=== PATIENT | female | born 1970 | race American Indian/Alaskan Native ===

== ENCOUNTER 2020-12-02 13:40 | Emergency (ER) | payer OTHER, MEDICARE ==
[2020-12-02 13:55] VITALS: BP 133/83
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
--- NOTE | 2020-12-02 15:21 | XRay Report ---
HISTORY:trauma COMPARISON: None. TECHNIQUE: AP lateral and obliques views were obtained FINDINGS: Bones: No fracture or dislocation. Joint spaces: Maintained. Soft tissues: No significant abnormality. Additional findings: None. IMPRESSION: 1. No significant abnormality. Signer Name: Dominic Heaton MD Signed: 12/02/2020 3:16 PM Workstation Name: [id number]
[2020-12-02] MEDS ORDERED: HYDROcodone/ACETAMINOPHEN 10-325MG TAB PO ONE (17:03)
--- NOTE | 2020-12-02 17:38 | XRay Report ---
LEFT RIBS 3 VIEWS INDICATION / CLINICAL INFORMATION: Left-sided rib pain. COMPARISON: None available. FINDINGS: RIBS: No acute, displaced fracture or other acute abnormality. LUNGS: No acute findings. No pneumothorax. Signer Name: Kirk Steele MD Signed: 12/02/2020 5:33 PM Workstation Name: [id number]
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
--- NOTE | 2020-12-04 11:19 | Electrocardiograph Report ---
[facility] Test Date: 2020-12-02 Test Time: 13:56:47 Pat Name: ISA SHARMA Department: Room: Gender: F [employer]ing Teacher: : 1970 Requested By: LOUISA AGEE Order Number: [id number] Reading MD: Chun Dbuon Measurements Intervals [place] Rate: 83 P: 61 IN: 126 QRS: -66 QRSD: 92 T: 60 QT: 369 QTc: 432 Interpretive Statements Sinus rhythm No previous ECG available for comparison Electronically Signed On 12-04-2020 11:18:42 EDT by Chun Dubon
== END 2020-12-02 18:25 | disposition home or self-care (01) ==
LOC: ED 13:40
DX: S96.911A Strain of unspecified muscle and tendon at ankle and foot level, right foot, initial encounter (principal); R07.81 Pleurodynia; I10 Essential (primary) hypertension; K21.9 Gastro-esophageal reflux disease without esophagitis; F17.200 Nicotine dependence, unspecified, uncomplicated; Z90.710 Acquired absence of both cervix and uterus; Z90.49 Acquired absence of other specified parts of digestive tract; Z79.899 Other long term (current) drug therapy; Z98.51 Tubal ligation status; V49.59XA Passenger injured in collision with other motor vehicles in traffic accident, initial encounter; Y92.410 Unspecified street and highway as the place of occurrence of the external cause; Y93.89 Activity, other specified; Y99.8 Other external cause status
CPT/HCPCS: 71046; 93005